=== PATIENT | female | born 1955 | race Caucasian/White ===

== ENCOUNTER 2021-11-13 00:01 | Emergency (ER) | payer OTHER, MEDICARE ==
[~2021-11-13] VITALS: Ht 165.1 cm; Wt 97.5 kg
[2021-11-13 00:03] VITALS: BP 146/71
== END 2021-11-13 01:17 | disposition home or self-care (01) ==
LOC: ER 00:05
DX: S93.492A Sprain of other ligament of left ankle, initial encounter (principal); X58.XXXA Exposure to other specified factors, initial encounter; Y93.89 Activity, other specified; Y92.89 Other specified places as the place of occurrence of the external cause; Y99.8 Other external cause status
CPT/HCPCS: 73590

== ENCOUNTER 2025-08-18 16:58 | Inpatient (IN) | payer MEDICARE, OTHER ==
[~2025-08-18] VITALS: Ht 165.1 cm; Wt 105.7 kg
--- NOTE | 2025-08-18 17:36 | ED.PDOC ---
GI ASSESSMENT HPI Comments 70y F who presents to the ED for chief complaint of abdominal pain. Pt states she has been having RLQ and LLQ abdominal pain for the past 2-3 weeks. Pt states she has history of gastric ulcers and states despite taking her PPI medications, she has continued to have pain and came to the ED for further evaluation. Pt rates her pain 7/10, constant, non-radiating, with no associated exacerbating or relieving factors. Pt has been having associated diarrhea but denies any other symptoms. Pt denies changes to diet or sick contacts. Pt has stable vitals in the ED. Pt denies any other symptoms at this time. Chief Complaint: Abdominal Pain Time Seen by MD: 17:31 Reviewed Notes: Nurses Notes, Medications, Allergies Allergies: Coded Allergies: NO KNOWN ALLERGIES (Unverified , 08/18/25) Information Source: Patient, Spouse Mode of Arrival: Ambulatory Brought in by: spouse Timing: Days Duration: Since onset Prehospital treatment: None Quality: Aching Vomitus: Firm Stool: Normal Severity: Moderate Recent: None Recent Hx of: None Pain Location: RLQ, LLQ Modifying Factors: Nothing Associated sign and symptoms: Diarrhea Past Medical History PAST MEDICAL HISTORY: Arthritis, DM, High Lipids, HTN, Thyroid Surgical History: Hysterectomy [employer] History: Denies all [employer] Hx Family History Family History: Reviewed,noncontributory to illness, No family hx of Cancer, No family hx of DM, No family hx of Heart harry, No family hx of HTN, No family hx ofKidney harry, No family hx of Liver harry, No family hx of Lung harry, No family hx of Stroke Social History Smoker: Quit Greater Than 1 Year Alcohol: Occasionally Drugs: Denies Drug Use Lives In: Home Constitutional: denies: chills, diaphoresis, fatigue, fever, malaise, sweats, weakness, others EENTM: denies: blurred vision, double vision, ear bleeding, ear discharge, ear drainage, ear pain, ear ringing, eye pain, eye redness, hearing loss, mouth pain, mouth swelling, nasal discharge, nose bleeding, nose congestion, nose pa in, photophobia, tearing, throat pain, throat swelling, voice changes, others Respiratory: denies: cough, hemoptysis, orthopnea, SOB at rest, shortness of breath, SOB with excertion, stridor, wheezing, others Cardiovascular: denies: chest pain, dizzy spells, diaphoresis, Dyspnea on exertion, edema, irregular heart beat, left arm pain, lightheadedness, palpitations, PND, syncope, others Gastrointestinal: reports: abdominal pain, diarrhea; denies: abdomen distended, blood streaked bowels, constipated, dysphagia, difficulty swallowing, hematemesis, melena, nausea, poor appetite, poor fluid intake, rectal bleeding, rectal pain, vomiting, others Genitourinary: denies: abnormal vagina bleeding, burning, dyspareunia, dysuria, flank pain, frequency, hematuria, incontinence, pain, , vagina discharge, urgency, others Neurological: denies: dizziness, fainting, headache, left sided numbness, left sided weakness, numbness, paresthesia, pre-existing deficit, right sided numbness, right sided weakness, seizure, speech problems, tingling, tremors, weakness, others Musculoskeletal: denies: back pain, gout, joint pain, joint swelling, muscle pain, muscle stiffness, neck pain, others Integumetry: denies: bruises, change in color, change in hair/nails, dryness, laceration, lesions, lumps, rash, wounds, others Allergic/Immunocompromised: denies: Difficulty Healing, Frequent Infections, Hives, Itching, others Hematologic/Lymphatic: denies: anemia, blood clots, easy bleeding, easy bruising, swollen glands, others Endocrine: denies: excessive hunger, excessive sweating, excessive thirst, excessive urination, flushing, intolerance to cold, intolerance to heat, unexplained weight gain, unexplained weight loss, others Psychiatric: denies: anxiety, bipolar disorder, depression, hopeless, panic disorder, schizophrenia, sleepless, suicidal, others All Other Systems: Reviewed and Negative Physical Exam General Appearance: Moderate Distress, Obese HEENT: Normal ENT Inspection, Pharynx Normal, TMs Normal Neck: Full Range of Motion, Non-Tender, Normal, Normal Inspection Respiratory: Chest Non-Tender, Lungs Clear, No Accessory Muscle Use, No R espiratory Distress, Normal Breath Sounds Cardiovascular: No Edema, No JVD, No Murmur, No Gallop, Normal Peripheral Pulses, Regular Rate/Rhythm Breast Exam: Deferred Gastrointestinal: Diffuse, No Organomegaly, No Pulsatile Mass, Normal Bowel Sounds, Soft, Tenderness Genitalia: Deferred Pelvic: Deferred Rectal: Deferred Extremities: No calf tenderness, Normal capillary refill, No pedal edema, Other (The patient has a boot to the right lower extremity) Musculoskeletal : Apperance: Normal Neurologic: Alert, transcript evaluator II-XII nml as Tested, No Motor Deficits, Normal Affect, Normal Mood, No Sensory Deficits Cerebellar Function: Normal Reflexes: Normal Skin: Dry, Normal Color, Warm Lymphatic: No Adenopathy Was a procedure done? Was a procedure done?: No GI differential Dx Differential Diagnosis: Cholangitis, Cholecystitis, Constipation, Diverticular disease, Esophagitis, Gastritis/PUD, Gastroenteritis, Inflammatory BD, Pancreatitis, UTI, Urolithiasis Other Differential Diagnosis PUD X-Ray, Labs, Meds, VS Vital Signs Date Time Temp Pulse Resp B/P (MAP) Pulse Ox O2 Delivery O2 Flow Rate FiO2 08/18/25 17:00 97.9 71 18 126/96 97 97.9 Lab Test 08/18/25 18:10 Range/Units White Blood Count 13.7 H 4.4-10.8 10^3/uL Red Blood Count 4.68 4.0-5.20 10^6/uL Hemoglobin 13.5 12.2-16.2 g/dL Hematocrit 39.9 36.0-46.0 % Mean Corpuscular Volume 85.3 80.0-100.0 fL Mean Corpuscular Hemoglobin 28.9 28.0-32.0 pg Mean Corpuscular Hemoglobin Concent 33.8 32.0-36.0 g/dL Red Cell Distribution Width 13.5 11.8-14.3 % Platelet Count 337 140-450 10^3/uL Mean Platelet Volume 8.6 6.9-10.8 fL Neutrophils (%) (Auto) 64.9 37.0-80.0 % Lymphocytes (%) (Auto) 18.7 10.0-50.0 % Monocytes (%) (Auto) 11.8 0.0-12.0 % Eosinophils (%) (Auto) 4.1 0.0-7.0 % Basophils (%) (Auto) 0.5 0.0-2.0 % Neutrophils # (Auto) 8.9 H 1.6-8.6 10 ^3/uL Lymphocytes # (Auto) 2.6 0.4-5.4 10 ^3/uL Monocytes # (Auto) 1.6 H 0-1.3 10 ^3/uL Eosinophils # (Auto) 0.6 0-0.8 10 ^3/uL Basophils # (Auto) 0.1 0-0.2 10 ^3/uL Nucleated Red Blood Cells 0.0 % Sodium Level 136 136-145 mmol/L Potassium Level 4.5 3.5-5.1 mmol/L Chloride Level 102 98-107 mmol/L Carbon Dioxide Level 24 20-31 mmol/L Anion Gap 10 5-15 Blood Urea Nitrogen 18 9-23 mg/dL Creatinine 1.00 0.550-1.02 mg/dL Glomerular Filtration Rate Calc 61 >90 mL/min BUN/Creatinine Ratio 18.0 10.0-20.0 Serum Glucose 112 H 74-106 mg/dL Calcium Level 10.0 8.7-10.4 mg/dL Total Bilirubin 0.2 0.2-1.0 mg/dL Aspartate Amino Transferase (AST) 34 13-40 U/L Alanine Aminotransferase (ALT) 34 7-40 U/L Alkaline Phosphatase 56 46-116 U/L Total Protein 7.0 5.7-8.2 g/dL Albumin 4.5 3.2-4.8 g/dL Lipase 27 12-53 U/L IV Hep-Lock was established The patient's CBC and chemistry panel are within normal limits except for an elevated white blood cell count of 13.7 The patient is being admitted at this time The CAT scan of the abdomen and pelvis shows no significant changes The patient is having significant amount of pain so we feel that the patient nee ds to be admitted to the hospitalist Images Reviewed?: Images reviewed and evaluated by me Time of 1ST Reevaluation: 18:05 Reevaluation 1ST: Unchanged Patient Education/Counseling: Diagnosis, Treatment, Prognosis Family Education/Counseling: Diagnosis, Treatment, Prognosis SEPSIS Sepsis Screen Date sepsis recognized/suspect: Aug 18, 2025 Time Sepsis recognized/suspect: 1701 Recent Procedure: No On Antibiotic Therapy: No Respiratory Rate >20: No Heart Rate >90: No Temp<36 C (96.8 F) or >38.3 C: No SBP <90 or MAP <65 mmHG: No New Acute Mental Status Change: No Is the patient on CPAP, BIPAP,: No Physician Orders Urinalysis (08/18/25 17:22) Ct Ab Pel Wo Con-No Oral Or Iv (08/18/25 17:22) Vital Signs Date Time Temp Pulse Resp B/P (MAP) Pulse Ox O2 Delivery O2 Flow Rate FiO2 08/18/25 17:00 97.9 71 18 126/96 97 97.9 Laboratory Tests Test 08/18/25 18:10 White Blood Count 13.7 10^3/uL (4.4-10.8) H Departure 1 Departure Time of Disposition: 19:13 Impression: Primary Impression: Intractable abdominal pain Disposition: ADMITTED INPATIENT Admit to: Med Surg Condition: Fair Critical Care Note Critical Care Time?: No Stability Stability form required: Yes Unstable for transfer: ED Physician Assesment (Clinical assesment) Heart Score Heart Score: Heart Score Response (Comments) Value History N/A 0 EKG N/A 0 Age N/A 0 Risk Factors N/A 0 Troponin N/A 0 Total 0 I personally scribed for BINU ALVARENGA MD ([email or web address]) on 08/18/25 at 17:36. Electronically submitted by Jay FELTON). BINU ALVARENGA MD Aug 18, 2025 17:36
[2025-08-18 18:23] LABS: Nucleated Red Blood Cells % 0.0 %
--- NOTE | 2025-08-18 18:30 | DVH ---
EXAM: CT CT AB PEL WO CON-NO ORAL OR IV HISTORY: pain Comparison Study: None Exam Date: 08/18/2025 05:54 PM Radiation Dose Information: CT Dose: CTDI volume is 25.43 mGy. Dose-length product is 1297.44 mGy*cm TECHNIQUE: Multidetector CT of the abdomen and pelvis was performed. Imaging was performed without IV contrast. Axial, coronal and sagittal multiplanar reformats were obtained from the axial data set by the technologist. FINDINGS: Lack of intravenous contrast compromises evaluation of perfusion and for isodense lesions. Lower chest: Clear. Liver: Unremarkable Biliary system: Cholelithiasis Spleen: Unremarkable Pancreas: Unremarkable. Adrenals: Unremarkable. Kidneys and ureters: No hydronephrosis Bowel: No obstruction. Duodenal lipoma. Normal appendix. Scattered colonic diverticula. Bladder: Unremarkable Reproductive organs: No abnormal mass. Lymph nodes: Unremarkable. Peritoneum: Unremarkable Vessels: Patency not evaluated on this noncontrast study. Bones and soft tissue: No aggressive osseous lesion IMPRESSION: No acute CT findings in the abdomen and pelvis. Cholelithiasis.
[2025-08-18 18:31] LABS: Hematocrit 39.9 % (36.0-46.0); Hemoglobin 13.5 g/dL (12.2-16.2); Mean Corpuscular Hemoglobin 28.9 pg (28.0-32.0); Mean Corpuscular Volume 85.3 fL (80.0-100.0)
[2025-08-18 18:36] LABS: Alanine Aminotransferase 34 U/L (7-40); Alkaline Phosphatase 56 U/L (46-116); Anion Gap 10 (5-15); BUN/Creatinine Ratio 18.0 (10.0-20.0); Blood Urea Nitrogen 18 mg/dL (9-23); Calcium 10.0 mg/dL (8.7-10.4); Carbon Dioxide 24 mmol/L (20-31); Chloride 102 mmol/L (98-107); Lipase 27 U/L (12-53); Potassium 4.5 mmol/L (3.5-5.1); Total Protein 7.0 g/dL (5.7-8.2)
[2025-08-18 18:37] LABS: Albumin 4.5 g/dL (3.2-4.8)
[2025-08-18 18:48] LABS: Sodium 136 mmol/L (136-145)
[2025-08-18 18:49] LABS: Bilirubin, Total 0.2 mg/dL (0.2-1.0); Glucose 112 mg/dL (74-106)
[2025-08-18] MEDS ORDERED: IPRATROPIUM BROM 0.5 MG/2.5ML INH SOL NEB PRN (21:00)
[2025-08-18] MEDS ORDERED: DEXTROSE (50%) 50ML SYRG IV PRN (21:00)
[2025-08-18] MEDS ORDERED: ALBUTEROL SULF 2.5 MG/0.5ML(0.5%) NEB SOLN NEB PRN (21:00)
[2025-08-18 21:10] VITALS: BP 126/96; PULSE 71; RESP 18; O2SAT 97
--- NOTE | 2025-08-18 21:25 | DVHHPRES ---
History of Present Illness Resident Creating Document: NIKO AVLVERDE RESIDENT History of Present Illness This is a 70-year-old female with past medical history of hypothyroidism, osteoporosis, COPD not on home oxygen, hypertension, peripheral neuropathy, dm 2, GERD, anxiety disorder, hyperlipidemia came to hospital with complaint of epigastric and right upper quadrant pain for year but worsen last week which is 8/10 intensity, intermittent, spasmodic in nature, radiates to right right shoulder, no aggravating factor, tried pain medicine which helps a little. Patient is taking omeprazole for gastritis for long time and believes pain due to gastric origin. Patient occasional feeling nausea but no vomiting. Patient history of recent right leg fracture 6 week back and started antibiotic Augmentin which makes her loose stool. Patient completed antibiotic and denies any other GI symptoms. Denies any fever, SOB, headache, chest pain, dysuria or any focal. Past medical history: As above Past surgical history: History salpingo-oophorectomy in 1987 Family history: Nothing contributory Personal history: Smoking cigarettes pack per day, denies any EtOH or illicit drug use Allergy: No known allergy PCP: Allen Dupont. HOME MEDS: Synthroid, alendronate, ipratropium/albuterol, Liothyronine, lisinopril, gabapentin, metformin, fluticasone, montelukast, omeprazole, baclofen, metoprolol, bupropion, QVAR, spironolactone fenofibric maggie ome furosem rodrigo, rosuvastatin. Review of Systems Constitutional: Yes: Weakness, Malaise; No: Fever, Chills, Sweats, Other Eyes: No: Pain, Vision change, Conjunctivae inflammation, Eyelid inflammation, Other, Redness ENT: No: Ear pain, Ear discharge, Nose pain, Nose discharge, Nose congestion, Mouth pain, Mouth swelling, Throat pain, Throat swelling, Other Respiratory: No: Cough, Dry, Shortness of breath, SOB with excertion, Wheezing, Hemoptysis, Pleuritic Pain, Sputum, Wheezing, Other Cardiovascular: No: Chest Pain, Palpitations, Orthopnea, Paroxysmal Noc. Dyspnea, Edema, Lt Headedness, Other Gastrointestinal: Nausea, Abdominal Pain, Other (Hemorrhoid); No: Vomiting, Miriam rrhea, Constipation, Melena, Hematochezia Genitourinary: No Dysuria, No Frequency, No Incontinence, No Hematuria, No Retention, No Other Musculoskeletal: No: other, neck pain, shoulder pain, arm pain, back pain, hand pain, leg pain, foot pain Skin: No: Rash, Lesions, Jaundice, Bruising, Other Neurological: No: Weakness, Numbness, Incoordination, Change in speech, Confusion, Seizures, Other Allergies: Coded Allergies: NO KNOWN ALLERGIES (Unverified , 08/18/25) Exam Vital Signs Vital Signs Date Time Temp Pulse Resp B/P (MAP) Pulse Ox O2 Delivery O2 Flow Rate FiO2 08/18/25 17:00 97.9 71 18 126/96 97 97.9 General Appearance: Alert, Oriented X3, Cooperative, mild distress HEENT: Atraumatic, PERRLA, EOMI Respiratory: Clear to auscultation, Normal air movement Cardiovascular: Regular rate, Normal S1, No murmurs Abdominal: Normal bowel sounds, Soft, Other (Tender deep palpation epigastric and right upper quadrant) Extremities: No clubbing, No cyanosis, No edema, Normal pulses, Other (Cast present right lower leg) Skin: No rashes, No breakdown, No significant lesion Neuro: Normal gait, Normal speech, Strength at 5/5 X4 ext, Normal tone Psych/Mental Status: Mental status NL, Mood NL Labs/Xrays Labs Test 08/18/25 18:10 Range/Units White Blood Count 13.7 H 4.4-10.8 10^3/uL Red Blood Count 4.68 4.0-5.20 10^6/uL Hemoglobin 13.5 12.2-16.2 g/dL Hematocrit 39.9 36.0-46.0 % Mean Corpuscular Volume 85.3 80.0-100.0 fL Mean Corpuscular Hemoglobin 28.9 28.0-32.0 pg Mean Corpuscular Hemoglobin Concent 33.8 32.0-36.0 g/dL Red Cell Distribution Width 13.5 11.8-14.3 % Platelet Count 337 140-450 10^3/uL Mean Platelet Volume 8.6 6.9-10.8 fL Neutrophils (%) (Auto) 64.9 37.0-80.0 % Lymphocytes (%) (Auto) 18.7 10.0-50.0 % Monocytes (%) (Auto) 11.8 0.0-12.0 % Eosinophils (%) (Auto) 4.1 0.0-7.0 % Basophils (%) (Auto) 0.5 0.0-2.0 % Neutrophils # (Auto) 8.9 H 1.6-8.6 10 ^3/uL Lymphocytes # (Auto) 2.6 0.4-5.4 10 ^3/uL Monocytes # (Auto) 1.6 H 0-1.3 10 ^3/uL Eosinophils # (Auto) 0.6 0-0.8 10 ^3/uL Basophils # (Auto) 0.1 0-0.2 10 ^3/uL Nucleated Red Blood Cells 0.0 % Sodium Level 136 136-145 mmol/L Potassium Level 4.5 3.5-5.1 mmol/L Chloride Level 102 98-107 mmol/L Carbon Dioxide Level 24 20-31 mmol/L Anion Gap 10 5-15 Blood Urea Nitrogen 18 9-23 mg/dL Creatinine 1.00 0.550-1.02 mg/dL Glomerular Filtration Rate Calc 61 >90 mL/min BUN/Creatinine Ratio 18.0 10.0-20.0 Serum Glucose 112 H 74-106 mg/dL Calcium Level 10.0 8.7-10.4 mg/dL Total Bilirubin 0.2 0.2-1.0 mg/dL Aspartate Amino Transferase (AST) 34 13-40 U/L Alanine Aminotransferase (ALT) 34 7-40 U/L Alkaline Phosphatase 56 46-116 U/L Total Protein 7.0 5.7-8.2 g/dL Albumin 4.5 3.2-4.8 g/dL Lipase 27 12-53 U/L SEPSIS Sepsis Screen Date sepsis recognized/suspect: Aug 18, 2025 Time Sepsis recognized/suspect: 1701 Recent Procedure: No On Antibiotic Therapy: No Respiratory Rate >20: No Heart Rate >90: No Temp<36 C (96.8 F) or >38.3 C: No SBP <90 or MAP <65 mmHG: No New Acute Mental Status Change: No Is the patient on CPAP, BIPAP,: No Physician Orders Urinalysis (08/18/25 17:22) Ct Ab Pel Wo Con-No Oral Or Iv (08/18/25 17:22) Admit (08/18/25 20:55) Code Status (08/18/25 20:55) 0.9% Ns 1000 Ml (08/18/25 21:00) Hydrocodone-Acet 5/325mg Tab ([place] 5/32 (08/18/25 21:00) Notify Md Of Changes From Base (08/18/25 20:55) Consistent Carb(Ccho)Diabetes (08/19/25 Breakfast) Nm Hida Scan (08/18/25 20:55) Ceftriaxone Ivpb Rocephin (08/19/25 09:00) Ceftriaxone Ivpb Rocephin (08/18/25 21:00) Glucose Blood (Accu-Chek Comfort Curve T (08/18/25 22:00) Mild Sliding Scale (08/18/25 22:00) Dextrose 50% Syringe (08/18/25 21:00) Levothyroxine Tablet (Synthroid Tablet) (08/19/25 06:00) Lisinopril Tablet (Zestril Tablet) (08/19/25 10:00) Albuterol Medneb (Ventolin Medneb) (08/18/25 21:00) Ipratropium Medneb (Atrovent Medneb) (08/18/25 21:00) Cont Med Neb Intial Tx (08/18/25 20:55) Pantoprazole Tablet (Protonix Tablet) (08/19/25 06:00) Metoprolol Tartrate Tablet (Lopressor Ta (08/18/25 22:00) Atorvastatin (Lipitor) (08/18/25 22:00) Furosemide Tablet (Lasix Tablet) (08/19/25 10:00) Vital Signs Date Time Temp Pulse Resp B/P (MAP) Pulse Ox O2 Delivery O2 Flow Rate FiO2 08/18/25 17:00 97.9 71 18 126/96 97 97.9 Laboratory Tests Test 08/18/25 18:10 White Blood Count 13.7 10^3/uL (4.4-10.8) H Assessment/Plan Assessment/Plan Acute cholecystitis due to cholelithiasis Intractable abdominal pain secondary to gastritis SIRS not sepsis CT abdomen pelvis without contrast: Cholelithiasis. Lipase:27 Leukocytosis WBC- 13.7 NPO Pain management Antiemetic Ceftriaxone empiric antibiotic HIDA scan Surgical consult. Complicated cystitis UA-leukocyte esterase 2+, WBC 17 IVF Ceftriaxone Hypothyroidism Home meds-Liothyronine Synthroid COPD without exacerbation Home meds-QVAR inhaler, monitor Breathing treatment with albuterol/ipratropium Questionable chronic systolic/diastolic heart failure Hypertensive kidney disease stage 2 Type 2 diabetes mellitus with peripheral neuropathy Hyperlipidemia with diabetes Peripheral neuropathy Lisinopril Atorvastatin Metoprolol Furosemide Home medication metformin Insulin sliding scale Monitor blood sugar Hemoglobin A1c Osteoporosis Home medication -alendronate History of fracture right lower extremity On cast Pain management Follow-up with outpatient(scheduled on August 29, 2025) Morbid obesity, BMI 40.2 Life style modification. Diet: Carbohydrate consistent GI prophylaxis: Pantoprazole DVT prophylaxis: Heparin Goals of care discussion. More than 29 minute spent with patient. Full code status. Case discussed with Dr. Watt Plan discussed with: Patient, Spouse (Llyod), Other (Nurse) My Orders Orders - NIKO VALVERDE RESIDENT Procedure Category Date Status Time Admit ADMIT 08/18/25 Transmitted 20:55 Code Status CODE 08/18/25 Verified 20:55 0.9% Ns 1000 Ml PHA 08/18/25 Verified 21:00 Hydrocodone-Acet PHA 08/18/25 Verified 5/325mg Tab ([place] 21:00 Notify Md Of Changes MIKE 08/18/25 Verified From Base 20:55 Consistent DIET 08/19/25 Verified Carb(Ccho)Diabetes Breakfast Nm Hida Scan NM 08/18/25 Transmitted 20:55 Ceftriaxone Ivpb PHA 08/19/25 Verified Rocephin 09:00 Ceftriaxone Ivpb PHA 08/18/25 Verified Rocephin 21:00 Glucose Blood PHA 08/18/25 Verified (Accu-Chek Comfort 22:00 Mild Sliding Scale PHA 08/18/25 Verified 22:00 Dextrose 50% Syringe PHA 08/18/25 Verified 21:00 Levothyroxine Tablet PHA 08/19/25 Verified (Synthroid Tablet) 06:00 Lisinopril Tablet PHA 08/19/25 Verified (Zestril Tablet) 10:00 Albuterol Medneb PHA 08/18/25 Verified (Ventolin Medneb) 21:00 Ipratropium Medneb PHA 08/18/25 Verified (Atrovent Medneb) 21:00 Cont Med Neb Intial Tx RT 08/18/25 Verified 20:55 Pantoprazole Tablet PHA 08/19/25 Verified (Protonix Tablet) 06:00 Metoprolol Tartrate PHA 08/18/25 Verified Tablet (Lopressor Ta 22:00 Atorvastatin (Lipitor) PHA 08/18/25 Verified 22:00 Furosemide Tablet PHA 08/19/25 Verified (Lasix Tablet) 10:00 Visit Coding STANDARD RES Billing Provider: RODRI WATT MD Date of Service if different f: Aug 18, 2025 Common Visit Codes: 62570-[id number] INP/OBS CARE (HIGH) Secondary Visit Codes: [id number] CARE PLAN 30 MINUTES NIKO VALVERDE RESIDENT Aug 18, 2025 21:25
[2025-08-18] MEDS: METOPROLOL TARTRATE 50 MG TAB PO SCH (22:00)
[2025-08-18] MEDS: ACCU-CHEK COMFORT CURVE STRIP VI SCH (22:30)
[2025-08-18] MEDS: InsuLIN REG 1unit/0.01ml Soln (100units/ml) SC SCH (22:30)
[2025-08-18] MEDS: HEPARIN SODIUM (PORCINE) 5000 UNITS/ML 1ML VIAL SC SCH (22:34)
[2025-08-18] MEDS: SODIUM CHLORIDE 0.9% 1,000 ML IV SCH (22:35)
[2025-08-18] MEDS: ATORVASTATIN 20 MG TAB PO SCH (22:35)
[2025-08-19] VITALS (7 sets, daily range): BP systolic 99–124; BP diastolic 55–74; PULSE 64–85; RESP 17–20; TEMP 97.8–98.4; O2SAT 90–98
[2025-08-19 00:22] LABS: Urine Protein, UAD Negative (Negative)
[2025-08-19 05:59] LABS: Hematocrit 38.5 % (36.0-46.0); Hemoglobin 12.7 g/dL (12.2-16.2); Mean Corpuscular Hemoglobin 28.2 pg (28.0-32.0); Mean Corpuscular Volume 85.3 fL (80.0-100.0); Nucleated Red Blood Cells % 0.0 %
[2025-08-19 06:09] LABS: Calcium 9.9 mg/dL (8.7-10.4); Chloride 101 mmol/L (98-107); Potassium 4.0 mmol/L (3.5-5.1); Sodium 137 mmol/L (136-145)
[2025-08-19 06:10] LABS: Anion Gap 10 (5-15); Carbon Dioxide 26 mmol/L (20-31)
[2025-08-19 06:15] LABS: BUN/Creatinine Ratio 21.1 (10.0-20.0); Blood Urea Nitrogen 19 mg/dL (9-23); Glucose 95 mg/dL (74-106)
[2025-08-19 06:16] LABS: INR 1.02 (0.9-1.15); Partial Thromboplastin Time 28.9 SEC (24.5-34.5); Prothrombin Time 10.8 sec (9.3-11.8)
[2025-08-19 06:20] LABS: Free T4 (Free Thyroxine) 1.17 ng/dL (0.89-1.76)
[2025-08-19] MEDS: LEVOTHYROXINE SODIUM 50 MCG TAB PO SCH (06:52)
--- NOTE | 2025-08-19 08:44 | DVH ---
CLINICAL INFORMATION: Rule out acute cholecystitis. TECHNIQUE: 5.5 mCi of Choletec were administered intravenously. Images of the upper abdomen were obtained at multiple intervals up to a total time of 30 minutes. COMPARISON: CT dated 08/18/2025. FINDINGS: There is prompt gallbladder visualization. There is prompt excretion of activity from the biliary ductal system into the small bowel. There is no evidence of acute cholecystitis. IMPRESSION: No scintigraphic evidence of acute cholecystitis.
[2025-08-19] MEDS: PANTOPRAZOLE 40 MG TAB PO SCH (09:37)
[2025-08-19] MEDS: LISINOPRIL 20 MG TAB PO SCH (09:37)
[2025-08-19] MEDS: FUROSEMIDE 40 MG TAB PO SCH (09:38)
--- NOTE | 2025-08-19 09:56 | DVH ---
INDICATION: r/o cardiopulmonary dx TECHNIQUE: Frontal view of the chest. COMPARISON: None FINDINGS: . The heart and mediastinal contours are grossly unremarkable. There is no evidence of pleural disease. The lungs are clear. The bony structures of the chest are intact without fracture. IMPRESSION: 1. No evidence of acute disease.
--- NOTE | 2025-08-19 14:15 | DVHPN2 ---
Reviewed: Care Plan, H&P, Labs, Medications, Previous Orders, Radiology Changes from previous H/P or p: No Changes Eyes: No Pain, No Vision change, No Conjunctivae inflammation, No Eyelid inflammation, No Other, No Redness ENT: No Ear pain, No Ear discharge, No Nose pain, No Nose discharge, No Nose congestion, No Mouth pain, No Mouth swelling, No Throat pain, No Throat swelling, No Other Cardiovascular: No Chest Pain, No Palpitations, No Orthopnea, No Paroxysmal Noc. Dyspnea, No Edema, No Lt Headedness, No Other Respiratory: No Cough, No Dry, No Shortness of breath, No SOB with excertion, No Wheezing, No Hemoptysis, No Pleuritic Pain, No Sputum, No Other Gastrointestinal: Nausea; No Vomiting; Abdominal Pain; No Diarrhea, No Constipation, No Melena, No Hematochezia; Other (Hemorrhoid) Genitourinary: No Dysuria, No Frequency, No Incontinence, No Hematuria, No Retention, No Other Musculoskeletal: No other, No neck pain, No shoulder pain, No arm pain, No back pain, No hand pain, No leg pain, No foot pain Skin: No Rash, No Lesions, No Jaundice, No Bruising, No Other Objective Vitals Vital Signs Date Time Temp Pulse Resp B/P (MAP) Pulse Ox O2 Delivery O2 Flow Rate FiO2 08/19/25 12:55 67 22 108/43 (64) 08/19/25 09:34 91 08/19/25 07:38 98.3 98.3 08/19/25 07:38 Room Air* 0 21 Intake/Output Intake and Output 08/19/25 07:00 Intake Total 470 ml Balance 470 ml Intake IV Total 470 ml Medications Current Medications Medications Dose Ordered Sig/Aki Route Start Time Stop Time Status Last Admin Dose Admin Sodium Chloride 1,000 ml @ 60 mls/hr [id number] IV 08/18/25 21:00 08/18/25 22:35 60 MLS/HR Acetaminophen/ Hydrocodone Bitart 1 tab Q4HP PRN PO 08/18/25 21:00 Ceftriaxone Sodium 50 ml @ 100 mls/hr DAILY@09 IV 08/19/25 09:00 08/19/25 09:39 100 MLS/HR Diagnostic Test (Pha) 1 strip ACHS 08/18/25 22:00 08/19/25 13:32 1 STRIP Insulin Human Regular ACHS SC 08/18/25 22:00 Dextrose 50 ml UD PRN IV 08/18/25 21:00 Levothyroxine Sodium 175 mcg QAM@0600 PO 08/19/25 06:00 08/19/25 06:52 175 MCG Lisinopril 20 mg DAILY PO 08/19/25 10:00 08/19/25 09:37 20 MG Albuterol 2.5 mg Q8HPRN PRN NEB 08/18/25 21:00 Ipratropium [place] 0.5 mg Q8HPRN PRN NEB 08/18/25 21:00 Pantoprazole Sodium 40 mg DAILY@0800 PO 08/19/25 08:00 08/19/25 09:37 40 MG Metoprolol Tartrate 50 mg BID PO 08/18/25 22:00 08/19/25 09:38 50 MG Atorvastatin Calcium 40 mg HS PO 08/18/25 22:00 08/18/25 22:35 40 MG Furosemide 40 mg DAILY PO 08/19/25 10:00 08/19/25 09:38 40 MG Heparin Sodium (Porcine) 5,000 units Q8HR SC 08/18/25 22:00 08/19/25 06:58 5,000 UNITS Laboratory Results Laboratory Tests 08/19/25 05:32 Chemistry Test 08/18/25 18:10 08/19/25 05:32 Albumin 4.5 g/dL (3.2-4.8) Calcium Level 10.0 mg/dL (8.7-10.4) 9.9 mg/dL (8.7-10.4) Total Protein 7.0 g/dL (5.7-8.2) Coagulation Test 08/19/25 05:32 Prothrombin Time 10.8 sec (9.3-11.8) Prothrombin Time INR 1.02 (0.9-1.15) Activated Partial Thromboplast Time 28.9 SEC (24.5-34.5) Lipid panel Test 08/18/25 18:10 Lipase 27 U/L (12-53) LFT Test 08/18/25 18:10 Alanine Aminotransferase (ALT) 34 U/L (7-40) Alkaline Phosphatase 56 U/L (46-116) Aspartate Amino Transferase (AST) 34 U/L (13-40) Total Bilirubin 0.2 mg/dL (0.2-1.0) HgA1c, TSH Test 08/19/25 05:32 Hemoglobin A1c 6.2 % A1C (<5.7) H Thyroid Stimulating Hormone (TSH) 1.20 uIU/mL (0.55-4.78) Urinalysis Test 08/19/25 00:13 Urine Color Light-yellow (Yellow) Urine Clarity Clear (Clear) Urine pH 5.0 (5.0-9.0) Urine Specific [place] 1.014 (1.001-1.035) Urine Protein Negative (Negative) Urine Ketones Negative (Negative) Urine Blood Negative /uL (Negative) Urine Nitrite Negative (Negative) Urine Bilirubin Negative (Negative) Urine Urobilinogen Normal mg/dL (Negative) Urine Leukocyte Esterase 2+ /uL (Negative) Urine RBC 1 /hpf (0 - 4) Urine Microscopic WBC 18 /HPF (0-5) H Urine Squamous Epithelial Cells Few /hpf (<5) Urine Bacteria None seen /hpf (None Seen) Urine Hyaline Casts Few /lpf (0 - 2) Urine Mucus Few (None Seen) Urine Glucose Normal mg/dL (Normal) Labs and/or images reviewed: Labs reviewed by me, Image(s) reviewed by me Assessment/Plan Assessment/Plan Acute Abdominal pain with elevated white count 13 k; Rocephin Cholelithiasis negative for cholecystitis by HIDA scan, surgical consult for Dr. Asael Antonio Acute COPD exacerbation Hypertension Controlled diabetes A1c 6.2 GERD Anxiety Hypothyroidism History of osteoporosis Right leg fracture six weeks ago finish course of Augmentin' Time spent 70 minutes Advanced care planning time 20 minutes Patient is full code Plan discussed with: Patient Date of Service: Aug 19, 2025 Billing Provider: AKHIL ANDERSON MD Common Visit Codes: [id number] CARE 30-74 MIN AKHIL ANDERSON MD Aug 19, 2025 14:15
--- NOTE | 2025-08-19 15:14 | DVHINCON2 ---
Date of service: Aug 19, 2025 Allergies: Coded Allergies: NO KNOWN ALLERGIES (Unverified , 08/18/25) Current Medications Current Medications Medications (Trade) Dose Ordered Sig/Aki Route PRN Reason Start Time Stop Time Status Last Admin Sodium Chloride 1,000 ml @ 60 mls/hr [id number] IV 08/18/25 21:00 08/18/25 22:35 Acetaminophen/ Hydrocodone Bitart ([place] 5/325MG Tab) 1 tab Q4HP PRN PO MODERATE PAIN (4-6 PAIN SCALE) 08/18/25 21:00 Ceftriaxone Sodium 50 ml @ 100 mls/hr DAILY@09 IV 08/19/25 09:00 08/19/25 09:39 Diagnostic Test (Pha) (Accu-Chek Comfort Curve T) 1 strip ACHS 08/18/25 22:00 08/19/25 13:32 Insulin Human Regular (InsuLIN R) ACHS SC 08/18/25 22:00 Dextrose 50 ml UD PRN IV Blood Sugar LESS THAN 60 08/18/25 21:00 Levothyroxine Sodium (Synthroid Tablet) 175 mcg QAM@0600 PO 08/19/25 06:00 08/19/25 06:52 Lisinopril (Zestril Tablet) 20 mg DAILY PO 08/19/25 10:00 08/19/25 09:37 Albuterol (Ventolin Medneb) 2.5 mg Q8HPRN PRN NEB SHORTNESS OF BREATH 08/18/25 21:00 Ipratropium [place] (Atrovent Medneb) 0.5 mg Q8HPRN PRN NEB SHORTNESS OF BREATH 08/18/25 21:00 Pantoprazole Sodium (Protonix Tablet) 40 mg DAILY@0800 PO 08/19/25 08:00 08/19/25 09:37 Metoprolol Tartrate (Lopressor Tablet) 50 mg BID PO 08/18/25 22:00 08/19/25 09:38 Atorvastatin Calcium (Lipitor) 40 mg HS PO 08/18/25 22:00 08/18/25 22:35 Furosemide (Lasix Tablet) 40 mg DAILY PO 08/19/25 10:00 08/19/25 09:38 Heparin Sodium (Porcine) 5,000 units Q8HR SC 08/18/25 22:00 08/19/25 06:58 Vital Signs Vital Signs Date Time Temp Pulse Resp B/P (MAP) Pulse Ox O2 Delivery O2 Flow Rate FiO2 08/19/25 14:28 98.0 64 18 124/69 (87) 90 98.0 08/19/25 07:38 Room Air* 0 21 Labs/Diagnostic Data Labs Test 08/19/25 13:26 08/19/25 05:32 08/19/25 00:13 08/18/25 18:10 Range/Units POC Glucose 123 H 70-106 mg/dl White Blood Count 12.0 H 4.4-10.8 10^3/uL Red Blood Count 4.52 4.0-5.20 10^6/uL Hemoglobin 12.7 12.2-16.2 g/dL Hematocrit 38.5 36.0-46.0 % Mean Corpuscular Volume 85.3 80.0-100.0 fL Mean Corpuscular Hemoglobin 28.2 28.0-32.0 pg Mean Corpuscular Hemoglobin Concent 33.0 32.0-36.0 g/dL Red Cell Distribution Width 13.5 11.8-14.3 % Platelet Count 287 140-450 10^3/uL Mean Platelet Volume 8.6 6.9-10.8 fL Neutrophils (%) (Auto) 60.2 37.0-80.0 % Lymphocytes (%) (Auto) 23.7 10.0-50.0 % Monocytes (%) (Auto) 10.5 0.0-12.0 % Eosinophils (%) (Auto) 4.8 0.0-7.0 % Basophils (%) (Auto) 0.8 0.0-2.0 % Neutrophils # (Auto) 7.2 1.6-8.6 10 ^3/uL Lymphocytes # (Auto) 2.8 0.4-5.4 10 ^3/uL Monocytes # (Auto) 1.3 0-1.3 10 ^3/uL Eosinophils # (Auto) 0.6 0-0.8 10 ^3/uL Basophils # (Auto) 0.1 0-0.2 10 ^3/uL Nucleated Red Blood Cells 0.0 % Prothrombin Time 10.8 9.3-11.8 sec Prothrombin Time INR 1.02 0.9-1.15 Activated Partial Thromboplast Time 28.9 24.5-34.5 SEC Sodium Level 137 136-145 mmol/L Potassium Level 4.0 3.5-5.1 mmol/L Chloride Level 101 98-107 mmol/L Carbon Dioxide Level 26 20-31 mmol/L Anion Gap 10 5-15 Blood Urea Nitrogen 19 9-23 mg/dL Creatinine 0.90 0.550-1.02 mg/dL Glomerular Filtration Rate Calc 69 >90 mL/min BUN/Creatinine Ratio 21.1 H 10.0-20.0 Serum Glucose 95 74-106 mg/dL Hemoglobin A1c 6.2 H <5.7 % A1C Calcium Level 9.9 8.7-10.4 mg/dL Vitamin B12 Level 421 211-911 pg/mL Vitamin D 25-Hydroxy 53.3 30.0-100 ng/mL Thyroid Stimulating Hormone (TSH) 1.20 0.55-4.78 uIU/mL Free Thyroxine (T4) Calculated 1.17 0.89-1.76 ng/dL Urine Color Light-yellow Yellow Urine Clarity Clear Clear Urine pH 5.0 5.0-9.0 Urine Specific [place] 1.014 1.001-1.035 Urine Protein Negative Negative Urine Ketones Negative Negative Urine Blood Negative Negative /uL Urine Nitrite Negative Negative Urine Bilirubin Negative Negative Urine Urobilinogen Normal Negative mg/dL Urine Leukocyte Esterase 2+ Negative /uL Urine RBC 1 0 - 4 /hpf Urine Microscopic WBC 18 H 0-5 /HPF Urine Squamous Epithelial Cells Few <5 /hpf Urine Bacteria None seen None Seen /hpf Urine Hyaline Casts Few 0 - 2 /lpf Urine Mucus Few None Seen Urine Glucose Normal Normal mg/dL Total Bilirubin 0.2 0.2-1.0 mg/dL Aspartate Amino Transferase (AST) 34 13-40 U/L Alanine Aminotransferase (ALT) 34 7-40 U/L Alkaline Phosphatase 56 46-116 U/L Total Protein 7.0 5.7-8.2 g/dL Albumin 4.5 3.2-4.8 g/dL Lipase 27 12-53 U/L Assessment [id number] C/O RUQ PAIN NOW RESOLVED AFEBRILE VSS ABD SOFT LFT WNL WBC WNL CT ABD PELVIS CHOLELITHIASIS HIDA SCAN NEG CONSIDER EMERGENT SURGERY BASE ON ONGOING EVAL Plan discussed with: Patient BRYSON HUERTA MD Aug 19, 2025 15:14
[2025-08-20] VITALS (10 sets, daily range): BP systolic 100–139; BP diastolic 48–67; PULSE 72–89; RESP 16–20; TEMP 96.4–97.9; O2SAT 90–100
--- NOTE | 2025-08-20 02:22 | DVHINCON2 ---
DATE OF CONSULTATION: 08/19/2025 HISTORY OF PRESENT ILLNESS: This patient is 70 years old coming with right upper quadrant pain, some nausea. No vomiting. No constipation or diarrhea. No hematemesis or melena. No bleeding per rectum. PAST MEDICAL HISTORY: Hypertension. No diabetes. PAST SURGICAL HISTORY: PRODUCT DEVELOPMENT COORDINATOR surgery. PHYSICAL EXAMINATION: VITAL SIGNS: Afebrile. Stable signs. HEENT: No evidence of pallor, cyanosis, or jaundice. NECK: Supple and nontender. No thyromegaly or lymphadenopathy. CHEST AND LUNGS: Clear. HEART: Within normal limits. ABDOMEN: Soft, tender in the right upper quadrant with minimal rebound. EXTREMITIES: Unremarkable. NEUROLOGIC: Intact. LABORATORY DATA: White cell count is 12. Liver enzymes are within normal limits. IMAGING STUDIES: Abdominal CT scan shows cholelithiasis. HIDA scan has been done. Negative for cholecystitis. PLAN: Consider laparoscopic, possible open cholecystectomy based upon ongoing evaluation. MD ANTOINETTE Randolph/TEMITOPE TID: [id number] RECEIPT: [id number] cc: Benjamín Chacon MD
--- NOTE | 2025-08-20 09:20 | DVHPN2 ---
Reviewed: Care Plan, H&P, Labs, Medications, Previous Orders, Radiology Changes from previous H/P or p: No Changes Eyes: No Pain, No Vision change, No Conjunctivae inflammation, No Eyelid inflammation, No Other, No Redness ENT: No Ear pain, No Ear discharge, No Nose pain, No Nose discharge, No Nose congestion, No Mouth pain, No Mouth swelling, No Throat pain, No Throat swelling, No Other Cardiovascular: No Chest Pain, No Palpitations, No Orthopnea, No Paroxysmal Noc. Dyspnea, No Edema, No Lt Headedness, No Other Respiratory: No Cough, No Dry, No Shortness of breath, No SOB with excertion, No Wheezing, No Hemoptysis, No Pleuritic Pain, No Sputum, No Other Gastrointestinal: Nausea; No Vomiting; Abdominal Pain; No Diarrhea, No Constipation, No Melena, No Hematochezia; Other (Hemorrhoid) Genitourinary: No Dysuria, No Frequency, No Incontinence, No Hematuria, No Retention, No Other Musculoskeletal: No other, No neck pain, No shoulder pain, No arm pain, No back pain, No hand pain, No leg pain, No foot pain Skin: No Rash, No Lesions, No Jaundice, No Bruising, No Other Objective Vitals Vital Signs Date Time Temp Pulse Resp B/P (MAP) Pulse Ox O2 Delivery O2 Flow Rate FiO2 08/20/25 08:47 137/61 08/20/25 08:46 88 08/20/25 05:00 97.9 16 90 97.9 08/19/25 20:05 Room Air* 0 21 Intake/Output Intake and Output 08/20/25 07:00 Intake Total 470 ml Output Total 0 ml Balance 470 ml Intake Oral 0 ml IV Total 470 ml Output Urine Total 0 ml # Voids 1 # Bowel Movements 1 Medications Current Medications Medications Dose Ordered Sig/Aki Route Start Time Stop Time Status Last Admin Dose Admin Sodium Chloride 1,000 ml @ 60 mls/hr [id number] IV 08/18/25 21:00 08/18/25 22:35 60 MLS/HR Acetaminophen/ Hydrocodone Bitart 1 tab Q4HP PRN PO 08/18/25 21:00 Ceftriaxone Sodium 50 ml @ 100 mls/hr DAILY@09 IV 08/19/25 09:00 08/20/25 08:42 100 MLS/HR Diagnostic Test (Pha) 1 strip ACHS 08/18/25 22:00 08/20/25 05:46 1 STRIP Insulin Human Regular ACHS SC 08/18/25 22:00 Dextrose 50 ml UD PRN IV 08/18/25 21:00 Levothyroxine Sodium 175 mcg QAM@0600 PO 08/19/25 06:00 08/20/25 05:47 175 MCG Lisinopril 20 mg DAILY PO 08/19/25 10:00 08/20/25 08:47 20 MG Albuterol 2.5 mg Q8HPRN PRN NEB 08/18/25 21:00 Ipratropium [place] 0.5 mg Q8HPRN PRN NEB 08/18/25 21:00 Pantoprazole Sodium 40 mg DAILY@0800 PO 08/19/25 08:00 08/20/25 08:42 40 MG Metoprolol Tartrate 50 mg BID PO 08/18/25 22:00 08/20/25 08:46 50 MG Atorvastatin Calcium 40 mg HS PO 08/18/25 22:00 08/18/25 22:35 40 MG Furosemide 40 mg DAILY PO 08/19/25 10:00 08/20/25 08:45 40 MG Heparin Sodium (Porcine) 5,000 units Q8HR SC 08/18/25 22:00 08/19/25 22:14 5,000 UNITS Laboratory Results Laboratory Tests 08/19/25 05:32 Urinalysis Test 08/19/25 00:13 Urine Color Light-yellow (Yellow) Urine Clarity Clear (Clear) Urine pH 5.0 (5.0-9.0) Urine Specific [place] 1.014 (1.001-1.035) Urine Protein Negative (Negative) Urine Ketones Negative (Negative) Urine Blood Negative /uL (Negative) Urine Nitrite Negative (Negative) Urine Bilirubin Negative (Negative) Urine Urobilinogen Normal mg/dL (Negative) Urine Leukocyte Esterase 2+ /uL (Negative) Urine RBC 1 /hpf (0 - 4) Urine Microscopic WBC 18 /HPF (0-5) H Urine Squamous Epithelial Cells Few /hpf (<5) Urine Bacteria None seen /hpf (None Seen) Urine Hyaline Casts Few /lpf (0 - 2) Urine Mucus Few (None Seen) Urine Glucose Normal mg/dL (Normal) Labs and/or images reviewed: Labs reviewed by me, Image(s) reviewed by me Assessment/Plan Assessment/Plan Acute Abdominal pain with elevated white count 13 k; Rocephin Cholelithiasis negative for cholecystitis by HIDA scan, surgical consult for Dr. Asael Antonio appreciated possible cholecystectomy Acute COPD exacerbation Hypertension Controlled diabetes A1c 6.2 GERD Anxiety Hypothyroidism History of osteoporosis Right Tib fracture six weeks ago finished course of Augmentin, seen by Dr. Shea Time spent 50 minutes Advanced care planning time 20 minutes Patient is full code Plan discussed with: Patient My Orders Orders - AKHIL ANDERSON MD Procedure Category Date Status Time * Surgical Consult CONS 08/19/25 Transmitted 14:15 Date of Service: Aug 20, 2025 Billing Provider: AKHIL ANDERSON MD Common Visit Codes: [id number] INP/OBS CARE(HIGH) AKHIL ANDERSON MD Aug 20, 2025 09:20
--- NOTE | 2025-08-20 17:38 | DVHPN2 ---
Progress Note Date Seen: Aug 20, 2025 Medical Necessity Reason Pt with a Central, PICC or Fol: No Objective vital signs Vital Sign Date Time Temp Pulse Resp B/P (MAP) Pulse Ox O2 Delivery O2 Flow Rate FiO2 08/20/25 17:00 96.4 82 20 100/48 (65) 94 96.4 08/20/25 08:00 Room Air* 0 21 Total Intake and Output 08/19/25 08/19/25 08/20/25 15:00 23:00 07:00 Intake Total 470 ml 0 ml Output Total 0 ml Balance 470 ml 0 ml medications Current Medications Medications Dose Ordered Sig/Aki Route Start Time Stop Time Status Last Admin Dose Admin Sodium Chloride 1,000 ml @ 60 mls/hr [id number] IV 08/18/25 21:00 08/18/25 22:35 60 MLS/HR Acetaminophen/ Hydrocodone Bitart 1 tab Q4HP PRN PO 08/18/25 21:00 Ceftriaxone Sodium 50 ml @ 100 mls/hr DAILY@09 IV 08/19/25 09:00 08/20/25 08:42 100 MLS/HR Diagnostic Test (Pha) 1 strip ACHS 08/18/25 22:00 08/20/25 17:28 1 STRIP Insulin Human Regular ACHS SC 08/18/25 22:00 Dextrose 50 ml UD PRN IV 08/18/25 21:00 Levothyroxine Sodium 175 mcg QAM@0600 PO 08/19/25 06:00 08/20/25 05:47 175 MCG Lisinopril 20 mg DAILY PO 08/19/25 10:00 08/20/25 08:47 20 MG Albuterol 2.5 mg Q8HPRN PRN NEB 08/18/25 21:00 Ipratropium [place] 0.5 mg Q8HPRN PRN NEB 08/18/25 21:00 Pantoprazole Sodium 40 mg DAILY@0800 PO 08/19/25 08:00 08/20/25 08:42 40 MG Metoprolol Tartrate 50 mg BID PO 08/18/25 22:00 08/20/25 08:46 50 MG Atorvastatin Calcium 40 mg HS PO 08/18/25 22:00 08/18/25 22:35 40 MG Furosemide 40 mg DAILY PO 08/19/25 10:00 08/20/25 08:45 40 MG laboratory and microbiology Laboratory Tests 08/19/25 05:32 Test 08/19/25 05:32 Range/Units Serum Glucose 95 74-106 mg/dL Problem List/Assessment/Plan Problem List/Assessment/Plan AFEBRILE VSS ABD SOFT NON TENDER ABD PAIN RESOLVED POSSIBLE MILD COLITIS NO DIARRHEA HIDA SCAN NEG NO INDICATION FOR EMERGENT SURGERY ADVANCE DIET STEVEN CLEARED FOR DISCHARGE PT AGREES NURSE AT BEDSIDE Plan discussed with: Patient BRYSON HUERTA MD Aug 20, 2025 17:38
[2025-08-21] VITALS (7 sets, daily range): BP systolic 119–137; BP diastolic 58–69; PULSE 75–82; RESP 18–20; TEMP 35.9; O2SAT 90–95
[2025-08-21] MEDS: HYDROcodone-ACET 5/325MG TAB PO PRN (05:47)
--- NOTE | 2025-08-21 08:19 | DVHPN2 ---
Reviewed: Care Plan, H&P, Labs, Medications, Previous Orders, Radiology Changes from previous H/P or p: No Changes Eyes: No Pain, No Vision change, No Conjunctivae inflammation, No Eyelid inflammation, No Other, No Redness ENT: No Ear pain, No Ear discharge, No Nose pain, No Nose discharge, No Nose congestion, No Mouth pain, No Mouth swelling, No Throat pain, No Throat swelling, No Other Cardiovascular: No Chest Pain, No Palpitations, No Orthopnea, No Paroxysmal Noc. Dyspnea, No Edema, No Lt Headedness, No Other Respiratory: No Cough, No Dry, No Shortness of breath, No SOB with excertion, No Wheezing, No Hemoptysis, No Pleuritic Pain, No Sputum, No Other Gastrointestinal: Nausea; No Vomiting; Abdominal Pain; No Diarrhea, No Constipation, No Melena, No Hematochezia; Other (Hemorrhoid) Genitourinary: No Dysuria, No Frequency, No Incontinence, No Hematuria, No Retention, No Other Musculoskeletal: No other, No neck pain, No shoulder pain, No arm pain, No back pain, No hand pain, No leg pain, No foot pain Skin: No Rash, No Lesions, No Jaundice, No Bruising, No Other Objective Vitals Vital Signs Date Time Temp Pulse Resp B/P (MAP) Pulse Ox O2 Delivery O2 Flow Rate FiO2 08/21/25 08:00 80 20 92 Room Air* 0 21 08/21/25 05:00 97.1 137/69 (91) 97.1 Intake/Output Intake and Output 08/21/25 07:00 Intake Total 290 ml Balance 290 ml Intake Oral 240 ml IV Total 50 ml # Voids 7 # Bowel Movements 2 Medications Current Medications Medications Dose Ordered Sig/Aki Route Start Time Stop Time Status Last Admin Dose Admin Sodium Chloride 1,000 ml @ 60 mls/hr [id number] IV 08/18/25 21:00 08/18/25 22:35 60 MLS/HR Acetaminophen/ Hydrocodone Bitart 1 tab Q4HP PRN PO 08/18/25 21:00 08/21/25 05:47 1 TAB Ceftriaxone Sodium 50 ml @ 100 mls/hr DAILY@09 IV 08/19/25 09:00 08/20/25 08:42 100 MLS/HR Diagnostic Test (Pha) 1 strip ACHS 08/18/25 22:00 08/21/25 05:47 1 STRIP Insulin Human Regular ACHS SC 08/18/25 22:00 Dextrose 50 ml UD PRN IV 08/18/25 21:00 Levothyroxine Sodium 175 mcg QAM@0600 PO 08/19/25 06:00 08/21/25 05:47 175 MCG Lisinopril 20 mg DAILY PO 08/19/25 10:00 08/20/25 08:47 20 MG Albuterol 2.5 mg Q8HPRN PRN NEB 08/18/25 21:00 Ipratropium [place] 0.5 mg Q8HPRN PRN NEB 08/18/25 21:00 Pantoprazole Sodium 40 mg DAILY@0800 PO 08/19/25 08:00 08/20/25 08:42 40 MG Metoprolol Tartrate 50 mg BID PO 08/18/25 22:00 08/20/25 22:03 50 MG Atorvastatin Calcium 40 mg HS PO 08/18/25 22:00 08/20/25 22:03 40 MG Furosemide 40 mg DAILY PO 08/19/25 10:00 08/20/25 08:45 40 MG Laboratory Results Laboratory Tests 08/19/25 05:32 Urinalysis Test 08/19/25 00:13 Urine Color Light-yellow (Yellow) Urine Clarity Clear (Clear) Urine pH 5.0 (5.0-9.0) Urine Specific [place] 1.014 (1.001-1.035) Urine Protein Negative (Negative) Urine Ketones Negative (Negative) Urine Blood Negative /uL (Negative) Urine Nitrite Negative (Negative) Urine Bilirubin Negative (Negative) Urine Urobilinogen Normal mg/dL (Negative) Urine Leukocyte Esterase 2+ /uL (Negative) Urine RBC 1 /hpf (0 - 4) Urine Microscopic WBC 18 /HPF (0-5) H Urine Squamous Epithelial Cells Few /hpf (<5) Urine Bacteria None seen /hpf (None Seen) Urine Hyaline Casts Few /lpf (0 - 2) Urine Mucus Few (None Seen) Urine Glucose Normal mg/dL (Normal) Labs and/or images reviewed: Labs reviewed by me, Image(s) reviewed by me Assessment/Plan Assessment/Plan Acute Abdominal pain with elevated white count 13 k possible colitis; treated with Rocephin Cholelithiasis negative for cholecystitis by HIDA scan, surgical consult for Dr. Asael Antonio appreciated cleared for discharge no cholecystectomy patient agreed Acute COPD exacerbation Hypertension Controlled diabetes A1c 6.2 GERD Anxiety Hypothyroidism History of osteoporosis Right Tib fracture six weeks ago finished course of Augmentin, seen by Dr. Shabbir Cortez at bedside and the patient is willing to go home Time spent 50 minutes Advanced care planning time 20 minutes Patient is full code Plan discussed with: Patient My Orders Orders - AKHIL ANDERSON MD Procedure Category Date Status Time Communication Order ORDERS 08/20/25 Transmitted 09:20 * Wound Consult CONS 08/20/25 Transmitted Apply: MIKE 08/20/25 In Process 19:32 Date of Service: Aug 21, 2025 Billing Provider: AKHIL ANDERSON MD Common Visit Codes: [id number] INP/OBS CARE(HIGH) AKHIL ANDERSON MD Aug 21, 2025 08:19
[2025-08-21] MEDS ORDERED: LEVO500T91 PO (08:20)
[2025-08-21] MEDS ORDERED: HYDR-4902 PO (08:20)
[2025-08-21] MEDS ORDERED: METR-344 PO (08:20)
--- NOTE | 2025-08-21 08:25 | DVHDS2 ---
Discharge Summary Date of Admission Aug 18, 2025 at 20:55 Date of Discharge: Aug 21, 2025 Admitting Diagnosis Abdominal pain Wounds: None Labs/Diagnostic Data: Laboratory Results Test 08/21/25 05:50 08/19/25 05:32 08/19/25 00:13 08/18/25 18:10 POC Glucose 99 mg/dl (70-106) White Blood Count 12.0 10^3/uL (4.4-10.8) Red Blood Count 4.52 10^6/uL (4.0-5.20) Hemoglobin 12.7 g/dL (12.2-16.2) Hematocrit 38.5 % (36.0-46.0) Mean Corpuscular Volume 85.3 fL (80.0-100.0) Mean Corpuscular Hemoglobin 28.2 pg (28.0-32.0) Mean Corpuscular Hemoglobin Concent 33.0 g/dL (32.0-36.0) Red Cell Distribution Width 13.5 % (11.8-14.3) Platelet Count 287 10^3/uL (140-450) Mean Platelet Volume 8.6 fL (6.9-10.8) Neutrophils (%) (Auto) 60.2 % (37.0-80.0) Lymphocytes (%) (Auto) 23.7 % (10.0-50.0) Monocytes (%) (Auto) 10.5 % (0.0-12.0) Eosinophils (%) (Auto) 4.8 % (0.0-7.0) Basophils (%) (Auto) 0.8 % (0.0-2.0) Neutrophils # (Auto) 7.2 10 ^3/uL (1.6-8.6) Lymphocytes # (Auto) 2.8 10 ^3/uL (0.4-5.4) Monocytes # (Auto) 1.3 10 ^3/uL (0-1.3) Eosinophils # (Auto) 0.6 10 ^3/uL (0-0.8) Basophils # (Auto) 0.1 10 ^3/uL (0-0.2) Nucleated Red Blood Cells 0.0 % Prothrombin Time 10.8 sec (9.3-11.8) Prothrombin Time INR 1.02 (0.9-1.15) Activated Partial Thromboplast Time 28.9 SEC (24.5-34.5) Sodium Level 137 mmol/L (136-145) Potassium Level 4.0 mmol/L (3.5-5.1) Chloride Level 101 mmol/L (98-107) Carbon Dioxide Level 26 mmol/L (20-31) Anion Gap 10 (5-15) Blood Urea Nitrogen 19 mg/dL (9-23) Creatinine 0.90 mg/dL (0.550-1.02) Glomerular Filtration Rate Calc 69 mL/min (>90) BUN/Creatinine Ratio 21.1 (10.0-20.0) Serum Glucose 95 mg/dL (74-106) Hemoglobin A1c 6.2 % A1C (<5.7) Calcium Level 9.9 mg/dL (8.7-10.4) Vitamin B12 Level 421 pg/mL (211-911) Vitamin D 25-Hydroxy 53.3 ng/mL (30.0-100) Thyroid Stimulating Hormone (TSH) 1.20 uIU/mL (0.55-4.78) Free Thyroxine (T4) Calculated 1.17 ng/dL (0.89-1.76) Urine Color Light-yellow (Yellow) Urine Clarity Clear (Clear) Urine pH 5.0 (5.0-9.0) Urine Specific [place] 1.014 (1.001-1.035) Urine Protein Negative (Negative) Urine Ketones Negative (Negative) Urine Blood Negative /uL (Negative) Urine Nitrite Negative (Negative) Urine Bilirubin Negative (Negative) Urine Urobilinogen Normal mg/dL (Negative) Urine Leukocyte Esterase 2+ /uL (Negative) Urine RBC 1 /hpf (0 - 4) Urine Microscopic WBC 18 /HPF (0-5) Urine Squamous Epithelial Cells Few /hpf (<5) Urine Bacteria None seen /hpf (None Seen) Urine Hyaline Casts Few /lpf (0 - 2) Urine Mucus Few (None Seen) Urine Glucose Normal mg/dL (Normal) Total Bilirubin 0.2 mg/dL (0.2-1.0) Aspartate Amino Transferase (AST) 34 U/L (13-40) Alanine Aminotransferase (ALT) 34 U/L (7-40) Alkaline Phosphatase 56 U/L (46-116) Total Protein 7.0 g/dL (5.7-8.2) Albumin 4.5 g/dL (3.2-4.8) Lipase 27 U/L (12-53) Other Laboratory Tests 08/19/25 05:32 Brief Hx & Hospital Course: 70-year-old female with a history of anxiety hypothyroidism osteoporosis hypertension diabetes COPD recent right hip fracture six weeks ago finish course of Augmentin came in complaining of abdominal pain with [place] [address]. Found to have cholelithiasis by CT abdomen pelvis without contrast HIDA scan is negative for cholecystitis seen by surgeon Dr. Asael Antonio advised elective cholecystectomy for with the patient agreed treated with Rocephin and Flagyl patient feels better and being discharged home. At the time of discharge no pain afebrile vital signs are stable and patient agreed for discharge, PEÑA jones at bedside at the time of discussion of the discharge plan. Advised to follow up with the primary Dr for referral to surgeon for elective cholecystectomy. Prescriptions transmitted to the pharmacy Consults/Reason for consult Surgeon Dr. Asael Antonio Operations or Procedures CT abdomen pelvis without contrast HIDA scan Condition at Discharge: Fair Final Diagnosis/Problems List Acute Abdominal pain with elevated white count 13 k possible colitis; treated with Rocephin Cholelithiasis negative for cholecystitis by HIDA scan, surgical consult for Dr. Asael Antonio appreciated cleared for discharge no cholecystectomy patient agreed Acute COPD exacerbation Hypertension Controlled diabetes A1c 6.2 GERD Anxiety Hypothyroidism History of osteoporosis Right Tib fracture six weeks ago finished course of Augmentin, seen by Dr. Shea Discharge Disposition: Home Discharge Instruct/Medications Diet: Cardiac 2g Na,low cholest Activity: Light activity Follow Up/Referral: Follow up with the primary Dr Dr. Dupont You are advised to follow up with surgeon Dr. Asael Antonio for elective cholecystectomy Resume all previous home meds Medications: Levaquin Flagyl [place] Transmitted to [facility]'s Scheduled Hydrocodone-Acetaminophen (Hydrocodone Bitartrate/AC 5-325 mg), 1 TAB PO QID Levofloxacin Hemihydrate (Levaquin 500 Mg), 1 TAB PO DAILY Metronidazole (Flagyl), 1 TAB PO TID 39 (Time taken for discharge summary 39 minutes) Discharge Statement: "Patient was advised to return to the ER or call 911 if any headaches, dizziness, shortness of breath, chest pain, abdominal pain, bleeding, fevers, or worsening of medical condition. Patient was counseled about treatment plan, medications, possible side effects, patientverbalized understanding. All questions were answered to the best of my ability. This discharge took greater then 30 minutes in planning, reviewing documentation, counseling the patient, and discussing with other team members." ASSESSMENT ASSESSMENT Hospital Course Improved Assessment Acute Abdominal pain with elevated white count 13 k possible colitis; treated with Rocephin Cholelithiasis negative for cholecystitis by HIDA scan, surgical consult for Dr. Asael Antonio appreciated cleared for discharge no cholecystectomy patient agreed Acute COPD exacerbation Hypertension Controlled diabetes A1c 6.2 GERD Anxiety Hypothyroidism History of osteoporosis Right Tib fracture six weeks ago finished course of Augmentin, seen by Dr. Shea Date of Service: Aug 21, 2025 Billing Provider: AKHIL ANDERSON MD Common Visit Codes: 04745-ZCO/OBS DISCH DAY >30min AKHIL ANDERSON MD Aug 21, 2025 08:25
== END 2025-08-21 12:43 | disposition home or self-care (01) | DRG 445 ==
LOC: ER 16:58 → OVERFLOW 20:55 → CENTRAL 08-19 14:26
PROVIDERS: ADMIT Family Medicine; ATTEND Family Medicine
DX: K80.20 Calculus of gallbladder without cholecystitis without obstruction (principal); J44.1 Chronic obstructive pulmonary disease with (acute) exacerbation; R65.10 Systemic inflammatory response syndrome (SIRS) of non-infectious origin without acute organ dysfunction; E03.9 Hypothyroidism, unspecified; E11.22 Type 2 diabetes mellitus with diabetic chronic kidney disease; E11.42 Type 2 diabetes mellitus with diabetic polyneuropathy; N30.90 Cystitis, unspecified without hematuria; E66.01 Morbid (severe) obesity due to excess calories; I12.9 Hypertensive chronic kidney disease with stage 1 through stage 4 chronic kidney disease, or unspecified chronic kidney disease; Z68.41 Body mass index [BMI] 40.0-44.9, adult; K52.9 Noninfective gastroenteritis and colitis, unspecified; K29.70 Gastritis, unspecified, without bleeding; N18.2 Chronic kidney disease, stage 2 (mild); F41.9 Anxiety disorder, unspecified; K21.9 Gastro-esophageal reflux disease without esophagitis; M81.0 Age-related osteoporosis without current pathological fracture; Z90.710 Acquired absence of both cervix and uterus; Z87.891 Personal history of nicotine dependence
CPT/HCPCS: 36415; 71045; 74176; 78226; 80048; 80053; 81001; 82306; 82607; 82962; 83036; 83690; 84439; 84443; 85025; 85610; 85730; 96365; G0378